=== PATIENT | female | born 1955 ===

== ENCOUNTER 2017-11-10 20:12 | Emergency (ER) | payer OTHER ==
[2017-11-10 20:56] LABS: BASO # 0.1 K/uL (0.0-0.2); BASO % 1.1 % (0.0-2.0); EOS # 0.2 K/uL (0.0-0.7); EOS % 3.1 % (0.0-4.0); HEMOGLOBIN 11.6 g/dL (11.0-16.0); LYMPH # 3.7 K/uL (1.0-4.3); LYMPH % 53.1 % (20.0-40.0); MEAN CELL VOLUME 67.4 fL (81.0-99.0); MEAN CORPUSCULAR HEMOGLOBIN 21.7 pg (27.0-31.0); MEAN CORPUSCULAR HGB CONC 32.2 g/dL (33.0-37.0); MONO # 0.6 K/uL (0.0-0.8); MONO % 7.9 % (0.0-10.0); NEUT # 2.5 K/uL (1.8-7.0); NEUT % 34.8 % (50.0-75.0); RBC 5.33 Mil/uL (3.80-5.20); RED CELL DISTRIBUTION WIDTH 16.1 % (11.5-14.5); WHITE BLOOD COUNT 7.1 K/uL (4.8-10.8)
--- NOTE | 2017-11-10 21:04 | C.PDOC ---
History Of Present Illness 62yo female with history of hypertension, hypercholesterolemia, presents to ED for evaluation of colicky lower abdominal pain since last week. She reports takin Tylenol for pain with transient relief. She denies any diarrhea, constipation, nausea, vomiting. She has no other medical complaints. Time Seen by Provider: 11/10/17 20:36 Chief Complaint (Nursing): Abdominal Pain History Per: Patient History/Exam Limitations: no limitations Onset/Duration Of Symptoms: Days Current Symptoms Are (Timing): Still Present Quality Of Discomfort: "Pain" Associated Symptoms: denies: Diarrhea, Constipation Past Medical History Reviewed: Historical Data, Nursing Documentation, Vital Signs Vital Signs: Last Vital Signs Temp 98.3 F 11/10/17 21:31 Pulse 70 11/10/17 21:31 Resp 20 11/10/17 21:31 BP 136/82 11/10/17 21:31 Pulse Ox 96 11/11/17 00:08 - Medical History PMH: Anxiety, Depression, HTN, Hypercholesterolemia Surgical History: Coronary Stent (4 years ago) Family History: States: No Known Family Hx - Social History Hx Alcohol Use: No Hx Substance Use: No - Immunization History Hx Influenza Vaccination: Yes Hx Pneumococcal Vaccination: Yes Review Of Systems Except As Marked, All Systems Reviewed And Found Negative. Constitutional: Negative for: Fever, Chills Cardiovascular: Negative for: Chest Pain Respiratory: Negative for: Shortness of Breath Gastrointestinal: Positive for: Abdominal Pain Physical Exam - Physical Exam Appears: Non-toxic, No Acute Distress Skin: Normal Color, Warm, Dry Head: Atraumatic, Normacephalic Eye(s): bilateral: Normal Inspection Cardiovascular: Rhythm Regular Respiratory: Normal Breath Sounds, No Wheezing Gastrointestinal/Abdominal: Soft, Tenderness (suprapubic) Back: Normal Inspection Extremity: Normal ROM, No Pedal Edema Neurological/Psych: Oriented x3 ED Course And Treatment - Laboratory Results Result Diagrams: 11/10/17 20:54 11/10/17 20:54 Lab Interpretation: Normal (ua neg.) O2 Sat by Pulse Oximetry: 96 (RA) Pulse Ox Interpretation: Normal - Radiology CXR: Interpreted by Me CXR Interpretation: Yes: No Acute Disease - Other Rad abd x 2 X-Ray: Interpreted by Me (++ stool R colon, c/w constipation) Reevaluation Time: 21:19 Reassessment Condition: Improved Medical Decision Making Medical Decision Making: normal labs/UA +Constipation in area of complaint mild elev lipase without epigastric discomfort, may be f/u as opt. Disposition Doctor Will See Patient In The: Office Counseled Patient/Family Regarding: Studies Performed, Diagnosis - Disposition Referrals: Wallace Blankenship MD [Staff Provider] - Disposition: HOME/ ROUTINE Disposition Time: 21:20 Condition: GOOD Additional Instructions: drink a laxative now- one bottle of Mag Citrate- and re-evaluate your abdominal discomfort after using the bathroom 2-3 times. diet and exercise changes drink more water 7 fresh fruits and vegetables daily Follow-up w Dr. Blankenship regarding mild elevated lipase level 351 Otherwise normal labs/urinalysis abd films show LARGE stool in colon. Instructions: Constipation, Adult (DC) Forms: [employer] ([place]ican) - Clinical Impression Clinical Impression: Abdominal pain - Scribe Statement The provider has reviewed the documentation as recorded by the Scribe (Judy Monroy) Provider Attestation: All medical record entries made by the Scribe were at my direction and personally dictated by me. I have reviewed the chart and agree that the record accurately reflects my personal performance of the history, physical exam, medical decision making, and the department course for this patient. I have also personally directed, reviewed, and agree with the discharge instructions and disposition.
[2017-11-10 21:08] LABS: ALB/GLOB RATIO 0.9 (1.0-2.1); ALBUMIN 3.9 g/dL (3.5-5.0); ALT/SGPT 35 U/L (9-52); AST/SGOT 43 U/L (14-36); BLOOD UREA NITROGEN 27 mg/dL (7-17); CALCIUM 9.7 mg/dl (8.6-10.4); GFR AFRICAN-AMERICAN > 60; GFR NON-AFRICAN AMERICAN > 60; LIPASE 352 U/L (23-300)
[2017-11-10 21:12] LABS: SQUAMOUS EPITHIAL 2 /hpf (0-5); URINE BACTERIA RARE (<OCC); URINE BILIRUBIN NEGATIVE (NEGATIVE); URINE BLOOD NEGATIVE (NEGATIVE); URINE CLARITY Clear (Clear); URINE COLOR Yellow (YELLOW); URINE GLUCOSE (UA) NORMAL (Normal); URINE LEUKOCYTE ESTERASE NEG Leu/uL (Negative); URINE PROTEIN NEGATIVE (NEGATIVE); URINE UROBILINOGEN NORMAL mg/dL (0.2-1.0)
[2017-11-10 21:32] VITALS: BP 136/82; PULSE 70; RESP 20; TEMP 98.3
[2017-11-10 21:52] VITALS: O2SAT 96
--- NOTE | 2017-11-11 08:30 | RAD ---
PROCEDURE: Radiographs of the chest and abdomen (obstructive series) HISTORY: abd pain COMPARISON: No prior. TECHNIQUE: AP radiograph of the chest, with upright and supine radiographs of the abdomen. FINDINGS: CHEST: Lungs: Grossly clear. Poor inspiratory effort. Cardiovascular: Normal size heart. No pulmonary vascular congestion. Pleura: No pleural fluid. No pneumothorax. Other findings: None. ABDOMEN AND PELVIS: Bowel: Unremarkable bowel gas pattern. No evidence of mechanical obstruction. Free air: None. Bones: Unremarkable. Other findings: None. IMPRESSION: Unremarkable radiographs of chest and abdomen. No evidence of mechanical bowel obstruction.
== END 2017-11-10 21:39 | disposition home or self-care (01) ==
LOC: C.ER 20:12
DX: R10.30 Lower abdominal pain, unspecified (principal)
CPT/HCPCS: 74022; 80053; 81001; 82948; 83690; 85025; 96374; 99284; J1885